=== PATIENT | female | born 1950 | race Caucasian/White ===

== ENCOUNTER 2019-03-16 16:21 | Inpatient (IN) | payer MEDICARE, MEDICAID ==
[~2019-03-16] VITALS: Ht 165.1 cm; Wt 71.7 kg
[2019-03-16] MEDS ORDERED: SERT25TA PO (16:47)
[2019-03-16] MEDS ORDERED: DICL100G16 TP (16:47)
[2019-03-16] MEDS ORDERED: ONDA4TAB11 PO (16:47)
[2019-03-16] MEDS ORDERED: SIMV40TA2 PO (16:47)
[2019-03-16] MEDS ORDERED: LORA10TA7 PO (16:47)
[2019-03-16] MEDS ORDERED: DOCU100C36 PO (16:47)
[2019-03-16] MEDS ORDERED: RANI150T8 PO (16:47)
[2019-03-16] MEDS ORDERED: DESO15OI TP (16:47)
[2019-03-16] MEDS ORDERED: LEVO125T8 PO (16:47)
[2019-03-16] MEDS ORDERED: ASPI81TA31 PO (16:47)
[2019-03-16] MEDS ORDERED: ACET-1467 PO (16:47)
[2019-03-16] MEDS ORDERED: LORA0.5T PO (16:47)
[2019-03-16] MEDS ORDERED: MULT1TAB73 PO (16:47)
[2019-03-16] MEDS ORDERED: POTA10TA15 PO (16:47)
[2019-03-16 20:00] VITALS: BP 102/69
[2019-03-16] MEDS ORDERED: MAG HYDROX/AL HYDROX/SIMETH 30 ML LIQUID UDC PO PRN (20:15)
[2019-03-16] MEDS ORDERED: ZOLPIDEM 5 MG TABLET PO PRN (20:15)
[2019-03-16] MEDS ORDERED: MAGNESIUM HYDROXIDE 30 ML LIQUID UDC PO PRN (20:15)
[2019-03-16] MEDS ORDERED: ACETAMINOPHEN 325 MG TABLET PO PRN (20:15)
[2019-03-16] MEDS ORDERED: HYDR25TA4 PO (20:17)
[2019-03-16] MEDS ORDERED: LISI40TA4 PO (20:17)
[2019-03-16] MEDS: LORAZEPAM 1 MG TABLET PO PRN (20:19)
[2019-03-16] MEDS ORDERED: ACETAMINOPHEN/CODEINE 300-30 MG TABLET PO PRN (21:45)
[2019-03-17] MEDS: LEVOTHYROXINE SODIUM 125 MCG TABLET PO SCH (06:04)
[2019-03-17 07:30] VITALS: BP 97/70
[2019-03-17 07:53] LABS: BASOPHILS # (AUTO) 0.1 K/uL (0.0-8.0); BASOPHILS % (AUTO) 1.2 % (0.0-2.0); EOSINOPHILS # (AUTO) 0.2 K/uL (0.0-0.7); EOSINOPHILS % (AUTO) 3.4 % (0.0-7.0); HEMATOCRIT 39.7 % (31.2-41.9); HEMOGLOBIN 12.8 g/dL (10.9-14.3); LYMPHOCYTES # (AUTO) 1.7 K/uL (20.0-40.0); LYMPHOCYTES % (AUTO) 24.3 % (20.5-51.5); MEAN CORPUSCULAR HEMOGLOBIN 25.5 uug (24.7-32.8); MEAN CORPUSCULAR HGB CONC 32 g/dL (32.3-35.6); MEAN CORPUSCULAR VOLUME 79.1 fL (75.5-95.3); MONOCYTES # (AUTO) 0.6 K/uL (2.0-10.0); MONOCYTES % (AUTO) 8.7 % (0.0-11.0); NEUTROPHILS # (AUTO) 4.5 K/uL (1.8-8.9); NEUTROPHILS % (AUTO) 62.4 % (38.5-71.5); PLATELET COUNT (AUTO) 307 K/uL (179-408); RED BLOOD CELL COUNT(AUTO) 5.02 MIL/uL (3.63-4.92); WHITE BLOOD COUNT (AUTO) 7.2 K/uL (3.8-11.8)
[2019-03-17 08:19] LABS: BILIRUBIN,TOTAL 0.6 mg/dL (0.2-1.0); CREATININE 1.1 mg/dL (0.6-1.3); MAGNESIUM 1.4 mg/dL (1.8-2.4); PHOSPHOROUS 3.2 mg/dL (2.5-4.9); POTASSIUM 4.3 mmol/L (3.5-5.1); TOTAL PROTEIN, SERUM 6.7 g/dL (6.4-8.2)
[2019-03-17] MEDS: ASPIRIN 81 MG TAB.CHEW PO SCH (08:40)
[2019-03-17] MEDS: HYDROCHLOROTHIAZIDE 25 MG TABLET PO SCH (08:49)
[2019-03-17] MEDS: LISINOPRIL 20 MG TABLET PO SCH (08:49)
[2019-03-17] MEDS: DOCUSATE SODIUM 100 MG CAPSULE PO SCH ×2 (08:53→18:12)
[2019-03-17] MEDS: LORATADINE 10 MG TABLET PO SCH (08:53)
[2019-03-17 09:27] LABS: THYROID STIMULATING HORMONE 7.278 mIU/mL (0.358-3.740)
[2019-03-17] MEDS: ESCITALOPRAM OXALATE 10 MG TABLET PO SCH (10:11)
[2019-03-17 16:00] VITALS: BP 127/64
[2019-03-17] MEDS ORDERED: MAGNESIUM OXIDE 400 MG TABLET PO ONE (17:30)
[2019-03-17 20:00] VITALS: BP 133/68
[2019-03-17] MEDS: LORAZEPAM 1 MG TABLET PO PRN (20:25)
[2019-03-17] MEDS: SIMVASTATIN 40 MG TABLET PO SCH (20:25)
[2019-03-18] MEDS: LEVOTHYROXINE SODIUM 125 MCG TABLET PO SCH (06:01)
[2019-03-18 07:30] VITALS: BP 138/76
[2019-03-18] MEDS: LISINOPRIL 20 MG TABLET PO SCH (08:18)
[2019-03-18] MEDS: ASPIRIN 81 MG TAB.CHEW PO SCH (08:18)
[2019-03-18] MEDS: ESCITALOPRAM OXALATE 10 MG TABLET PO SCH (08:18)
[2019-03-18] MEDS: DOCUSATE SODIUM 100 MG CAPSULE PO SCH ×2 (08:18→17:14)
[2019-03-18] MEDS: LORATADINE 10 MG TABLET PO SCH (08:18)
[2019-03-18] MEDS: HYDROCHLOROTHIAZIDE 25 MG TABLET PO SCH (08:18)
[2019-03-18 16:00] VITALS: BP 122/86
[2019-03-18 20:00] VITALS: BP 133/82
[2019-03-18] MEDS: SIMVASTATIN 40 MG TABLET PO SCH (20:16)
[2019-03-19] MEDS: LEVOTHYROXINE SODIUM 125 MCG TABLET PO SCH (05:29)
[2019-03-19 07:30] VITALS: BP 117/69
[2019-03-19] MEDS: LORATADINE 10 MG TABLET PO SCH (08:50)
[2019-03-19] MEDS: DOCUSATE SODIUM 100 MG CAPSULE PO SCH ×2 (09:01→17:13)
[2019-03-19] MEDS: ESCITALOPRAM OXALATE 10 MG TABLET PO SCH (09:01)
[2019-03-19] MEDS: ASPIRIN 81 MG TAB.CHEW PO SCH (09:04)
[2019-03-19] MEDS: LISINOPRIL 20 MG TABLET PO SCH (09:08)
[2019-03-19] MEDS ORDERED: LORATADINE 10 MG TABLET PO PRN (09:30)
[2019-03-19] MEDS: HYDROCHLOROTHIAZIDE 25 MG TABLET PO SCH (10:20)
[2019-03-19] MEDS: MEGESTROL ACETATE 400 MG/10 ML LIQUID UDC PO SCH (10:31)
[2019-03-19 16:00] VITALS: BP 142/88
[2019-03-19 20:14] VITALS: BP 152/80
[2019-03-19] MEDS: SIMVASTATIN 40 MG TABLET PO SCH (21:03)
[2019-03-19] MEDS: MIRTAZAPINE 15 MG TABLET PO SCH (21:03)
[2019-03-20] MEDS: LEVOTHYROXINE SODIUM 125 MCG TABLET PO SCH (05:51)
[2019-03-20 07:30] VITALS: BP 94/56
[2019-03-20] MEDS: DOCUSATE SODIUM 100 MG CAPSULE PO SCH ×2 (08:44→16:40)
[2019-03-20] MEDS: ASPIRIN 81 MG TAB.CHEW PO SCH (08:44)
[2019-03-20] MEDS: LISINOPRIL 20 MG TABLET PO SCH (08:44)
[2019-03-20] MEDS: ESCITALOPRAM OXALATE 10 MG TABLET PO SCH (08:44)
[2019-03-20] MEDS: MEGESTROL ACETATE 400 MG/10 ML LIQUID UDC PO SCH (08:44)
[2019-03-20] MEDS ORDERED: CLONIDINE HCL 0.1 MG TABLET PO PRN (08:45)
[2019-03-20] MEDS: HYDROCHLOROTHIAZIDE 25 MG TABLET PO SCH (08:49)
[2019-03-20 16:52] VITALS: BP 140/62
[2019-03-20] MEDS: LORAZEPAM 1 MG TABLET PO PRN ×2 (17:30→17:43)
[2019-03-20 20:11] VITALS: BP 85/49
[2019-03-20] MEDS: MIRTAZAPINE 15 MG TABLET PO SCH (20:39)
[2019-03-20] MEDS: SIMVASTATIN 40 MG TABLET PO SCH (20:39)
[2019-03-21] MEDS: LEVOTHYROXINE SODIUM 125 MCG TABLET PO SCH (05:55)
[2019-03-21 07:30] VITALS: BP 90/51
[2019-03-21] MEDS: ESCITALOPRAM OXALATE 10 MG TABLET PO SCH (08:31)
[2019-03-21] MEDS: ASPIRIN 81 MG TAB.CHEW PO SCH (08:31)
[2019-03-21] MEDS: MEGESTROL ACETATE 400 MG/10 ML LIQUID UDC PO SCH (08:31)
[2019-03-21] MEDS: DOCUSATE SODIUM 100 MG CAPSULE PO SCH ×2 (08:32→16:54)
[2019-03-21] MEDS: HYDROCHLOROTHIAZIDE 25 MG TABLET PO SCH (08:32)
[2019-03-21] MEDS: LISINOPRIL 20 MG TABLET PO SCH (08:32)
[2019-03-21 16:34] VITALS: BP 98/59
[2019-03-21 20:12] VITALS: BP 140/79
[2019-03-21] MEDS: SIMVASTATIN 40 MG TABLET PO SCH (20:18)
[2019-03-21] MEDS: MIRTAZAPINE 15 MG TABLET PO SCH (20:18)
[2019-03-22] MEDS: LEVOTHYROXINE SODIUM 125 MCG TABLET PO SCH (06:07)
[2019-03-22 07:30] VITALS: BP 114/72
[2019-03-22] MEDS: ESCITALOPRAM OXALATE 10 MG TABLET PO SCH (08:35)
[2019-03-22] MEDS: ASPIRIN 81 MG TAB.CHEW PO SCH (08:35)
[2019-03-22] MEDS: MEGESTROL ACETATE 400 MG/10 ML LIQUID UDC PO SCH (08:35)
[2019-03-22] MEDS: LISINOPRIL 20 MG TABLET PO SCH (08:36)
[2019-03-22] MEDS: HYDROCHLOROTHIAZIDE 25 MG TABLET PO SCH (08:36)
[2019-03-22] MEDS: DOCUSATE SODIUM 100 MG CAPSULE PO SCH ×2 (08:36→17:00)
[2019-03-22] MEDS: VENLAFAXINE XR 75 MG CAP.SR.24H PO SCH (10:13)
[2019-03-22 16:00] VITALS: BP 120/80
[2019-03-22] MEDS: MIRTAZAPINE 15 MG TABLET PO SCH (20:00)
[2019-03-22] MEDS: SIMVASTATIN 40 MG TABLET PO SCH (20:00)
[2019-03-22] MEDS: LORAZEPAM 1 MG TABLET PO PRN (20:00)
[2019-03-23] MEDS: LEVOTHYROXINE SODIUM 125 MCG TABLET PO SCH (05:53)
[2019-03-23 07:30] VITALS: BP 115/72
[2019-03-23] MEDS: MEGESTROL ACETATE 400 MG/10 ML LIQUID UDC PO SCH (08:17)
[2019-03-23] MEDS: VENLAFAXINE XR 75 MG CAP.SR.24H PO SCH (08:17)
[2019-03-23] MEDS: DOCUSATE SODIUM 100 MG CAPSULE PO SCH ×2 (08:18→16:15)
[2019-03-23] MEDS: LISINOPRIL 20 MG TABLET PO SCH (08:18)
[2019-03-23] MEDS: ASPIRIN 81 MG TAB.CHEW PO SCH (08:18)
[2019-03-23] MEDS: HYDROCHLOROTHIAZIDE 25 MG TABLET PO SCH (08:18)
[2019-03-23 15:37] VITALS: BP 113/77
[2019-03-23] MEDS: MIRTAZAPINE 15 MG TABLET PO SCH (20:30)
[2019-03-23] MEDS: SIMVASTATIN 40 MG TABLET PO SCH (20:33)
[2019-03-23 20:40] VITALS: BP 112/75
[2019-03-24] MEDS: LORAZEPAM 1 MG TABLET PO PRN (03:03)
[2019-03-24] MEDS: LISINOPRIL 20 MG TABLET PO SCH ×2 (05:59→08:47)
[2019-03-24] MEDS: HYDROCHLOROTHIAZIDE 25 MG TABLET PO SCH ×2 (05:59→08:47)
[2019-03-24] MEDS: LEVOTHYROXINE SODIUM 125 MCG TABLET PO SCH (06:13)
[2019-03-24 07:30] VITALS: BP 75/49
[2019-03-24 08:47] VITALS: BP 75/49
[2019-03-24] MEDS: VENLAFAXINE XR 75 MG CAP.SR.24H PO SCH (08:48)
[2019-03-24] MEDS: DOCUSATE SODIUM 100 MG CAPSULE PO SCH (08:49)
[2019-03-24] MEDS: ASPIRIN 81 MG TAB.CHEW PO SCH (08:49)
[2019-03-24] MEDS: MEGESTROL ACETATE 400 MG/10 ML LIQUID UDC PO SCH (08:53)
== END 2019-03-24 14:00 | disposition short-term general hospital (02) | DRG 885 ==
LOC: ER 16:21 → GPS 18:51
PROVIDERS: ADMIT Psychiatry & Neurology Psychiatry; ATTEND Nurse Practitioner Acute Care
DX: F33.2 Major depressive disorder, recurrent severe without psychotic features (principal); Z85.51 Personal history of malignant neoplasm of bladder; E78.5 Hyperlipidemia, unspecified; E03.9 Hypothyroidism, unspecified; Z79.82 Long term (current) use of aspirin; Z79.899 Other long term (current) drug therapy; I95.9 Hypotension, unspecified; F41.9 Anxiety disorder, unspecified; R19.7 Diarrhea, unspecified; R94.6 Abnormal results of thyroid function studies
CPT/HCPCS: 36415; 70450; 71045; 73501; 83735; 84100; 84443; 84481; 85025; A4663; J8999

== ENCOUNTER 2019-03-24 14:19 | Inpatient (IN) | payer MEDICARE, OTHER ==
[~2019-03-24] VITALS: Ht 165.1 cm; Wt 69.4 kg
[2019-03-24] VITALS (10 sets, daily range): BP systolic 65–108; BP diastolic 37–65
[~2019-03-24 14:19] MED LIST: ACET-1467 PO; ASPI81TA31 PO; DESO15OI TP; DICL100G16 TP; DOCU100C36 PO; HYDR25TA4 PO; LEVO125T8 PO; LISI40TA4 PO; LORA10TA7 PO; MULT1TAB73 PO; ONDA4TAB11 PO; POTA10TA15 PO; RANI150T8 PO; SIMV40TA2 PO
[2019-03-24] MEDS ORDERED: ONDANSETRON 4 MG/2 ML VIAL IV PRN (15:00)
[2019-03-24] MEDS ORDERED: IV NS 1000 ML 1,000 ML IV ONE ×2 (15:00→22:00)
[2019-03-24] MEDS ORDERED: ACETAMINOPHEN 325 MG TABLET PO PRN (15:00)
[2019-03-24] MEDS ORDERED: ZOLPIDEM 5 MG TABLET PO PRN (15:00)
[2019-03-24] MEDS ORDERED: NOREPINEPHRINE BITARTRATE 8 MG in IV DEXTROSE 5% 500 ML IV PRN ×2 (15:00→17:45)
[2019-03-24 16:33] LABS: BASOPHILS # (AUTO) 0.1 K/uL (0.0-8.0); BASOPHILS % (AUTO) 1.2 % (0.0-2.0); EOSINOPHILS # (AUTO) 0.1 K/uL (0.0-0.7); HEMATOCRIT 40.5 % (31.2-41.9); HEMOGLOBIN 13.2 g/dL (10.9-14.3); LYMPHOCYTES # (AUTO) 1.1 K/uL (20.0-40.0); MEAN CORPUSCULAR HEMOGLOBIN 25.7 uug (24.7-32.8); MEAN CORPUSCULAR HGB CONC 33 g/dL (32.3-35.6); MEAN CORPUSCULAR VOLUME 79.2 fL (75.5-95.3); MONOCYTES # (AUTO) 0.7 K/uL (2.0-10.0); MONOCYTES % (AUTO) 8.8 % (0.0-11.0); NEUTROPHILS # (AUTO) 5.8 K/uL (1.8-8.9); PLATELET COUNT (AUTO) 282 K/uL (179-408); RED BLOOD CELL COUNT(AUTO) 5.11 MIL/uL (3.63-4.92); WHITE BLOOD COUNT (AUTO) 7.8 K/uL (3.8-11.8)
[2019-03-24] MEDS: IV NS 1000 ML 1,000 ML IV PRN (16:39)
[2019-03-24 16:40] LABS: CREATININE 2.5 mg/dL (0.6-1.3)
[2019-03-24 16:45] LABS: BILIRUBIN,TOTAL 0.7 mg/dL (0.2-1.0); TOTAL PROTEIN, SERUM 6.2 g/dL (6.4-8.2)
--- NOTE | 2019-03-24 21:45 | NUR ---
Pt with frequent hypotensive episdes with SBP in the 70's-80's. notfified. Orders received for NS bolus, 1000ml x1 and increasing of the IV fluid to 150ml/hr. Malin catheter inserted. Scant yellow urine noted.
[2019-03-25] VITALS (30 sets, daily range): BP systolic 77–140; BP diastolic 44–89
[2019-03-25] MEDS: IV NS 1000 ML 1,000 ML IV PRN ×2 (00:51→08:07)
[2019-03-25 01:54] LABS: *CLARITY,URINE SLIGHTLY CLOUDY (CLEAR); *COLOR,URINE YELLOW (YELLOW); *KETONES,URINE NEGATIVE (NEGATIVE); LEUKOCYTE ESTERASE ,URINE NEGATIVE (NEGATIVE); NITRITE, URINE NEGATIVE (NEGATIVE); UGLUCOSE NEGATIVE (NEGATIVE)
[2019-03-25 02:18] LABS: *BILIRUBIN,URIN 1+ (NEGATIVE); *BLOOD, URINE TRACE (NEGATIVE)
[2019-03-25 02:21] LABS: BACTERIA,URINE NONE SEEN /HPF (NONE SEEN); MUCUS,URINE FEW /LPF (0-FEW); SQUAMOUS EPITHELIAL CELL,UR FEW /HPF (NONE SEEN); TRANSITIONAL EPI CELLS,URINE MODERATE /LPF (NONE SEEN); WBC,URINE 0-3 /HPF (0-3)
[2019-03-25 05:15] LABS: BASOPHILS # (AUTO) 0.1 K/uL (0.0-8.0); BASOPHILS % (AUTO) 0.9 % (0.0-2.0); EOSINOPHILS # (AUTO) 0.2 K/uL (0.0-0.7); EOSINOPHILS % (AUTO) 2.4 % (0.0-7.0); HEMATOCRIT 35.6 % (31.2-41.9); HEMOGLOBIN 11.7 g/dL (10.9-14.3); LYMPHOCYTES # (AUTO) 1.6 K/uL (20.0-40.0); LYMPHOCYTES % (AUTO) 24.7 % (20.5-51.5); MEAN CORPUSCULAR HGB CONC 33 g/dL (32.3-35.6); MEAN CORPUSCULAR VOLUME 79.3 fL (75.5-95.3); MONOCYTES # (AUTO) 0.6 K/uL (2.0-10.0); NEUTROPHILS # (AUTO) 4.2 K/uL (1.8-8.9); PLATELET COUNT (AUTO) 260 K/uL (179-408); RED BLOOD CELL COUNT(AUTO) 4.49 MIL/uL (3.63-4.92); WHITE BLOOD COUNT (AUTO) 6.6 K/uL (3.8-11.8)
[2019-03-25 05:18] LABS: CREATININE 1.6 mg/dL (0.6-1.3); MAGNESIUM 1.6 mg/dL (1.8-2.4); PHOSPHOROUS 2.4 mg/dL (2.5-4.9)
[2019-03-25 05:21] LABS: POTASSIUM 2.8 mmol/L (3.5-5.1)
--- NOTE | 2019-03-25 06:30 | NUR ---
No suicide ideations voiced by the patient throughout the shift.
--- NOTE | 2019-03-25 09:01 | NUR ---
With Pt Maylin in the unit attempts to get orthostatic blood pressure but patient unable to stand and c/of weakness. sbp of 103/48 lying down and of 102/57 sitting with steady HR90's. N.P. working with Ledy Gonzales in the unit and aware.
[2019-03-25] MEDS: POTASSIUM CHLORIDE 50 ML IV SCH ×4 (09:26→12:25)
[2019-03-25] MEDS: MAGNESIUM SULFATE/D5W 100 ML IV SCH ×2 (09:27→11:01)
--- NOTE | 2019-03-25 12:40 | NUR ---
At this time attending Sarah GARZON Epic present in the unit to examine patient, full report given.
--- NOTE | 2019-03-25 13:00 | NUR ---
Telephone report given to Kaya Rae patient will be taken to room 321 via own bed. AAOx1-2. vitals stable no c/of pain. PICC line to RUE 3L all patent. both K, and MG replacement completed.
--- NOTE | 2019-03-25 13:50 | NUR ---
Patient taken up to room 321 via own bed. AAOX 2-3. vitals stable, no c/of any discomfort. patient examine by psychiatrist before departing.
[2019-03-25] MEDS ORDERED: NEUTRA PHOS PACKET PO ONE (16:00)
--- NOTE | 2019-03-25 19:00 | NUR ---
RECEIVED PATIENT AWAKE AND ALERT IN BED WITH FAMILY AT SIDE. PICC LINE IN ARLEN IS PATENT AND INTACT WITH IV FLUIDS RUNNING @ 150 mL/HR. SKIN IS INTACT. PATIENT HAS NO COMPLAINTS OF PAIN OR ACUTE DISTRESS. HAS 1:1 SITTER AT BEDSIDE. WILL CONTINUE TO MONITOR.
[2019-03-26] VITALS: BP 143/84
[2019-03-26] MEDS: IV NS 1000 ML 1,000 ML IV PRN ×4 (00:27→22:03)
[2019-03-26 04:58] VITALS: BP 148/72
--- NOTE | 2019-03-26 05:00 | NUR ---
PATIENT SLEPT COMFORTABLY THROUGHOUT NIGHT WITH NO COMPLAINTS OF PAIN OR ACUTE DISTRESS. SAFETY AND FALL PRECAUTION MEASURES IN PLACE. BED IN LOW POSITION AND BRAKE IS LOCKED. 2 SIDE RAILS UP AND IN LOCKED POSITION. ALL PERTINENT INFORMATION TO PROVIDED TO NEXT SHIFT.
[2019-03-26 06:39] LABS: BASOPHILS % (AUTO) 0.8 % (0.0-2.0); EOSINOPHILS # (AUTO) 0.1 K/uL (0.0-0.7); EOSINOPHILS % (AUTO) 1.9 % (0.0-7.0); LYMPHOCYTES # (AUTO) 1.1 K/uL (20.0-40.0); LYMPHOCYTES % (AUTO) 20.2 % (20.5-51.5); MEAN CORPUSCULAR HEMOGLOBIN 25.8 uug (24.7-32.8); MEAN CORPUSCULAR HGB CONC 32 g/dL (32.3-35.6); MEAN CORPUSCULAR VOLUME 79.4 fL (75.5-95.3); MONOCYTES # (AUTO) 0.4 K/uL (2.0-10.0); MONOCYTES % (AUTO) 7.6 % (0.0-11.0); NEUTROPHILS # (AUTO) 3.9 K/uL (1.8-8.9); NEUTROPHILS % (AUTO) 69.5 % (38.5-71.5); PLATELET COUNT (AUTO) 224 K/uL (179-408); WHITE BLOOD COUNT (AUTO) 5.6 K/uL (3.8-11.8)
[2019-03-26 06:49] LABS: HEMATOCRIT 39.7 % (31.2-41.9); HEMOGLOBIN 12.9 g/dL (10.9-14.3)
[2019-03-26 07:03] LABS: MAGNESIUM 1.6 mg/dL (1.8-2.4); PHOSPHOROUS 2.6 mg/dL (2.5-4.9); POTASSIUM 3.4 mmol/L (3.5-5.1)
[2019-03-26 07:30] VITALS: BP 133/76
--- NOTE | 2019-03-26 10:30 | NUR ---
PT visits patient, updated on present HR increasing to 150's while ambulating, and will assess patient. Marcelino Atkinson RN
[2019-03-26] MEDS: POTASSIUM CHLORIDE 50 ML IV SCH ×2 (11:03→13:34)
[2019-03-26] MEDS: MAGNESIUM SULFATE/D5W 100 ML IV SCH ×2 (11:04→13:34)
--- NOTE | 2019-03-26 12:00 | NUR ---
Patient has 1:1 sitter with patient, and patient resting quietly. No complaints of pain. Patient encouraged to eat lunch, and refusing to eat. Marcelino Atkinson RN
[2019-03-26 12:17] VITALS: BP_SYST 105; BP_SYST 131; BP_SYST 138; BP_DIAS 70; BP_DIAS 81; BP_DIAS 86
[2019-03-26 15:00] VITALS: BP 101/46
[2019-03-26 20:03] VITALS: BP 101/55
[2019-03-26] MEDS: MIRTAZAPINE 15 MG TABLET PO SCH (21:01)
[2019-03-27 04:00] VITALS: BP 120/60
[2019-03-27] MEDS: IV NS 1000 ML 1,000 ML IV PRN ×2 (04:12→11:21)
[2019-03-27 06:18] LABS: BASOPHILS # (AUTO) 0.1 K/uL (0.0-8.0); BASOPHILS % (AUTO) 0.7 % (0.0-2.0); EOSINOPHILS # (AUTO) 0.3 K/uL (0.0-0.7); EOSINOPHILS % (AUTO) 3.3 % (0.0-7.0); HEMATOCRIT 36.3 % (31.2-41.9); HEMOGLOBIN 11.8 g/dL (10.9-14.3); LYMPHOCYTES # (AUTO) 1.5 K/uL (20.0-40.0); LYMPHOCYTES % (AUTO) 17.8 % (20.5-51.5); MEAN CORPUSCULAR HEMOGLOBIN 25.8 uug (24.7-32.8); MEAN CORPUSCULAR HGB CONC 32 g/dL (32.3-35.6); MEAN CORPUSCULAR VOLUME 79.4 fL (75.5-95.3); MONOCYTES # (AUTO) 0.7 K/uL (2.0-10.0); NEUTROPHILS % (AUTO) 70.2 % (38.5-71.5); PLATELET COUNT (AUTO) 212 K/uL (179-408); RED BLOOD CELL COUNT(AUTO) 4.57 MIL/uL (3.63-4.92); WHITE BLOOD COUNT (AUTO) 8.5 K/uL (3.8-11.8)
[2019-03-27 06:27] LABS: MAGNESIUM 1.4 mg/dL (1.8-2.4); PHOSPHOROUS 2.5 mg/dL (2.5-4.9); POTASSIUM 3.1 mmol/L (3.5-5.1)
--- NOTE | 2019-03-27 07:00 | NUR ---
slept most of the night, had uneventful night
--- NOTE | 2019-03-27 07:30 | NUR ---
resting well, wanted to speak to family. made aware daughter will come later .
[2019-03-27 08:00] VITALS: BP 141/78
--- NOTE | 2019-03-27 10:25 | NUR ---
noa zazueta at bedside, supportive of patient care.
[2019-03-27] MEDS ORDERED: ONDANSETRON ODT 4 MG TAB.RAPDIS SL PRN (10:45)
[2019-03-27] MEDS ORDERED: POTASSIUM CHLORIDE 20 MEQ TAB.PRT.SR PO ONE (10:45)
[2019-03-27] MEDS ORDERED: MAGNESIUM OXIDE 400 MG TABLET PO ONE (10:45)
--- NOTE | 2019-03-27 13:00 | NUR ---
appetite good, tolerating fluids well
[2019-03-27] MEDS ORDERED: MIRT15TA7 PO (14:26)
[2019-03-27] MEDS ORDERED: LISI-603 PO (14:26)
[2019-03-27] MEDS ORDERED: POTA20TA10 PO (14:26)
[2019-03-27 15:55] VITALS: BP 146/90
[2019-03-27] MEDS ORDERED: SIMVASTATIN 40 MG TABLET PO SCH (17:00)
--- NOTE | 2019-03-27 17:11 | NUR ---
on bed, comfortable. watching tv. set up for dinner
--- NOTE | 2019-03-27 17:30 | NUR ---
kumar dc, tolerated well
--- NOTE | 2019-03-27 19:17 | NUR ---
has not voided for now.
--- NOTE | 2019-03-27 19:40 | NUR ---
RECEIVED PT FROM THE DAY SHIFT. PATIENT IS AWAKE ORIENTED X2. PT SHOWS NO SIGNS OF ACUTE DISTRESS. PATIENT PICC IS PATENT & RUNNING. SAFETY AND COMFORT PROVIDED. WILL CONTINUE TO MONITOR. SITTER IS AT BEDSIDE.
[2019-03-27] MEDS ORDERED: DOCUSATE SODIUM 100 MG CAPSULE PO SCH (21:00)
[2019-03-27] MEDS: MIRTAZAPINE 15 MG TABLET PO SCH (21:36)
[2019-03-28] MEDS: IV NS 1000 ML 1,000 ML IV PRN ×2 (03:08→09:46)
[2019-03-28] MEDS: LEVOTHYROXINE SODIUM 125 MCG TABLET PO SCH ×2 (06:00→06:19)
--- NOTE | 2019-03-28 06:10 | NUR ---
PATIENT REFUSED HER SYNTHROID, PRETENDED TO TAKE IT AND THEN THREW IT ON THE FLOOR AND ASKED THE RN TO LEAVE.
--- NOTE | 2019-03-28 07:00 | NUR ---
PATIENT DID OT SLEEP AT ALL. HAD SEVERAL EPISODES OF AGITATION, REDIRECTABLE. COMFORT AND SAFETY PROVIDED. PENDING DC TO ARU.
--- NOTE | 2019-03-28 07:16 | NUR ---
RECEIVED PATIENT ON BED, AWAKE AAOX1-2, NO ACUTE DISTRESS NOTED. !:1 SITTER AT BEDSIDE FOR SAFETY PICC LINE TRIPLE LUMEN ON ARLEN INTACT AND PATENT RUNNING NS @ 150 CC/HR, ON 14 DAY HOLD UP ON 04/02/19 PER VISUAL MERCHANDISING DIRECTOR PATIENT HAS TENDENCY TO PRETEND TO TAKE MEDICATION AND HIDE IT. ALSO WOF POCKETING MEDS. VITAL SIGNS STABLE. APPEARS COMFORTABLE. UNABLE TO DISCHARGE PATIENT TO ARU SINCE PATIENT IS STILL ON 14 DAY HOLD, WILL FF UP WITH DR. MANN. SAFETY PRECS OBSERVED AT ALL TIMES. CALL LIGHT WITHIN REACH. WILL CONTINUE TO MONITOR CLOSELY,.
[2019-03-28 08:00] VITALS: BP 120/84
[2019-03-28 08:33] VITALS: BP 151/93
[2019-03-28] MEDS ORDERED: POTASSIUM CHLORIDE 20 MEQ TAB.PRT.SR PO SCH (09:00)
[2019-03-28] MEDS ORDERED: ASPIRIN 81 MG TAB.CHEW PO SCH (09:00)
[2019-03-28] MEDS ORDERED: LORATADINE 10 MG TABLET PO SCH (09:00)
[2019-03-28] MEDS ORDERED: LISINOPRIL 20 MG TABLET PO SCH (09:00)
[2019-03-28] MEDS ORDERED: HYDROCHLOROTHIAZIDE 25 MG TABLET PO SCH (09:00)
--- NOTE | 2019-03-28 10:20 | NUR ---
seen and examined by Dr. Saenz,with orders to DC 14 day hold, noted and carried. out. will continue to monitor closely.
--- NOTE | 2019-03-28 11:17 | NUR ---
seen and examined by Sheri Roberts ROLL FORMING MACHINE SET UP OPERATOR, with orders to DC PICC line and remove before transfer to SNF. orders noted and carried out.
--- NOTE | 2019-03-28 15:32 | NUR ---
PATIENT DISCHARGED TO [facility] IN STABLE CONDITION. REPORT GIVEN TO ETELVINA DOWNS. ([id number]) DISCHARGE INSTRUCTIONS AND PAPERS, GIVEN AND EXPLAINED TO PATIENT. PICC LINE REMOVED. WELL TOLERATED. BELONGINGS LIST COMPLETED. HOME MEDS RETURNED TO PATIENT. LEFT HOSPITAL VIA AMBULANCE ACCOMPANIED BY 2 EMT.
== END 2019-03-28 15:40 | DRG 683 ==
LOC: TELE3 14:19 → CCU 16:50 → TELE3 03-25 14:39 → MEDSURG3 03-27 13:15
PROVIDERS: ADMIT Nurse Practitioner Acute Care; ATTEND Nurse Practitioner Acute Care
PROC: 05HY33Z Insertion of Infusion Device into Upper Vein, Percutaneous Approach (ICD-10-PCS; principal; 2019-03-24)
DX: N17.0 Acute kidney failure with tubular necrosis (principal); F33.2 Major depressive disorder, recurrent severe without psychotic features; E86.0 Dehydration; I95.1 Orthostatic hypotension; E87.6 Hypokalemia; E83.51 Hypocalcemia; I10 Essential (primary) hypertension; Z85.51 Personal history of malignant neoplasm of bladder; E83.42 Hypomagnesemia; E83.39 Other disorders of phosphorus metabolism; E78.5 Hyperlipidemia, unspecified; E03.9 Hypothyroidism, unspecified; Z79.899 Other long term (current) drug therapy
CPT/HCPCS: 36415; 83605; 83735; 84100; 85025; 87086; 93307; 97110; 97530; A4663; G0378; J3475; J3480; J3490; J7030; J7060